=== PATIENT | female | born 1990 | race Hispanic/Latino ===

== ENCOUNTER 2020-04-26 01:24 | Observation (INO) | payer SELFPAY ==
[2020-04-26] MEDS ORDERED: Ondansetron PF 4 MG/2 ML Vial ONE ×3 (01:46→10:34)
[2020-04-26] MEDS ORDERED: Ketorolac Tromethamine 30 MG/ML VIAL ONE ×2 (01:46→10:34)
[2020-04-26 02:21] LABS: Bilirubin Negative (Negative); Blood, Urine Negative (Negative); Clarity Clear (Clear); Glucose, Urine (Dipstick) >=1000 mg/dL (Negative); Ketone, Urine Trace mg/dL (Negative); Leukocyte Negative Leu/uL (Negative); Nitrite Negative (Negative); Protein, Urine (Dipstick) Negative (Neg-Trace); Specific Gravity, Urine 1.016 (1.002-1.036); Urobilinogen Normal mg/dL (Less than 2); pH, Urine 7.5 (5.0-9.0)
[2020-04-26 02:22] LABS: Hemoglobin 12.3 g/dL (12.0-16.0); Mean Corpuscular HGB CONC 35.1 g/dL (32.0-36.0); Mean Corpuscular Hemoglobin 30.7 pg (27.0-31.0); Mean Corpuscular Volume 87.5 fL (78.0-98.0); Mean Platelet Volume 6.9 fL (7.4-10.4); Platelet Count 242 thou/uL (130-400); RBC Distribution Width 13.2 % (11.5-14.5); Red Blood Cell (RBC) Count 4.01 mill/uL (4.20-5.40); White Blood Cell (WBC) Count 7.1 thou/uL (4.8-10.8)
[2020-04-26 02:24] LABS: BHCG - Serum Negative (NEGATIVE); Pregs Control Background? CLEAR/WHITE (CLR/WHITE); Pregs Control Bar Appear? YES (CONTROL BAR)
[2020-04-26 02:38] LABS: Band 4 % (5-11); Lymphocytes 43 % (21-51); MDiff Complete? YES; Monocytes 9 % (0-10); Neutrophil 44 % (42-75); Platelet Morphology Comment Appears Adequate; RBC Morphology Normal
[2020-04-26 02:41] LABS: ALT (SGPT) 63 U/L (8-55); AST (SGOT) 53 U/L (5-34); Albumin 4.2 g/dL (3.5-5.0); Alkaline Phosphatase 78 U/L (40-110); Anion Gap 13 mmol/L (10-20); BUN (Urea Nitrogen) 7 mg/dL (7.0-18.7); Bilirubin, Total 0.3 mg/dL (0.2-1.2); Calc. Creatinine Clearance 0 mL/min (70-130); Calcium 8.8 mg/dL (7.8-10.44); Carbon Dioxide 25 mmol/L (22-29); Chloride 102 mmol/L (98-107); Estimated GFR-MDRD Greater than 90; Globulin 3.3 g/dL (2.4-3.5); Glucose 206 mg/dL (70-105); Lipase 31 U/L (8-78); Potassium 3.3 mmol/L (3.5-5.1); Protein, Total 7.5 g/dL (6.0-8.3); Sodium 137 mmol/L (136-145)
[2020-04-26] MEDS ORDERED: Morphine 4 MG/ML VIAL ONE (03:40)
[2020-04-26] MEDS ORDERED: Piperacillin/Tazobactam 4.5 GM VIAL ONE (03:50)
[2020-04-26] MEDS ORDERED: Morphine 4 MG/ML VIAL SLOW IVP PRN ×2 (04:41→17:01)
[2020-04-26] MEDS ORDERED: Ondansetron ODT 4 MG TAB SL PRN (04:45)
[2020-04-26] MEDS ORDERED: Ondansetron PF 4 MG/2 ML Vial IVP PRN (04:45)
[2020-04-26 05:01] VITALS: BMI 31.4
[2020-04-26] MEDS ORDERED: FLU VACC QS2020-21(6MOS UP)/PF 60 MCG/0.5 ML SYRINGE IM ONE (06:45)
--- NOTE | 2020-04-26 07:49 | ULT ---
PRELIMINARY REPORT/[facility]/EMERGENCY AFTER HOURS PROCEDURE: EXAM: US Abdomen Limited, Right Upper Quadrant. CLINICAL HISTORY: RT sided pain x 3 days, nausea TECHNIQUE: Real-time ultrasound of the right upper quadrant with image documentation. COMPARISON: None provided. FINDINGS: LIVER: Measures 16.5 cm and demonstrates fatty infiltration. GALLBLADDER: No gallstone. No wall thickening. No pericholecystic fluid. COMMON BILE DUCT: No dilation. Measures 2.4 mm PANCREAS: Mostly obscured by overlying bowel gas. RIGHT KIDNEY: Unremarkable. No hydronephrosis. Measures 12.1 cm IMPRESSION: No acute process in the RIGHT upper quadrant ELECTRONICALLY SIGNED BY: Nicolas Pace MD Apr 26, 2020 2:25:38 AM LABORER [employer] FINAL REPORT EMERGENT AFTER HOURS RIGHT UPPER QUADRANT ABDOMINAL ULTRASOUND: FINDINGS/IMPRESSION: I agree with the findings and impression given in the preliminary report per [facility] physici [facility]. Unremarkable exam. POS: JESSICAA
--- NOTE | 2020-04-26 07:51 | CT ---
PRELIMINARY REPORT/[facility]/EMERGENCY AFTER HOURS PROCEDURE: Receipt of this report by the clinical staff was confirmed with Romelia Bach RN by Leno Ta on Apr 26, 2020 03:26:00 EVENT MARKETING REPRESENTATIVE. Addendum electronically signed by Shreya Ta on April 26, 2020 3:26:43 AM EVENT MARKETING REPRESENTATIVE EXAM: CT abdomen/pelvis with contrast CLINICAL HISTORY: ABD PAIN X2 DAYS. NAUSEA, NOT VOMITING. RLQ PAIN. PT DENIES FEVER. COMPARISONS: None provided. TECHNIQUE: CT imaging of the abdomen and pelvis after intravenous administration of 100 mL Isovue-370 iodinated contrast. Multiplanar reconstructions performed. FINDINGS: LOWER CHEST: Normal. LIVER: Diffuse hypoattenuation of the liver compatible with hepatic steatosis. GALLBLADDER/BILIARY: Gallbladder is partially decompressed. No biliary ductal dilatation. SPLEEN: Normal. PANCREAS: Normal. ADRENAL GLANDS: Normal. KIDNEYS/URETERS/URINARY BLADDER: Normal appearance of the kidneys. Ureters are normal in course claudy kan. No urinary stones. Urinary bladder is unremarkable. REPRODUCTIVE: Normal appearance of the uterus. Cystic changes of both ovaries, likely physiologic. STOMACH/BOWEL: Distal esophagus and stomach are normal. Small bowel is normal. Large bowel is normal. APPENDIX: Wall thickening and hyperenhancement of the appendiceal tip with mild surrounding inflammat ory stranding at the appendiceal tip. Appendix measures 9 mm in diameter at the tip No periappendicea l fluid collection/abscess. PERITONEUM/MESENTERY: No intraperitoneal free air. No intraperitoneal free fluid. VASCULAR: Vascular structures of the abdomen and pelvis are normal in course and caliber. LYMPH NODES: Prominent right lower quadrant mesenteric lymph nodes measuring up to 8 mm in short axis , likely reactive. MUSCULOSKELETAL: No acute osseous abnormality. Disc bulge at L5-S1. ABDOMINAL WALL: Small fat-containing umbilical hernia. IMPRESSION: Early acute appendicitis with inflammatory changes at the appendiceal tip. No periappendiceal abscess or evidence of gross perforation. ELECTRONICALLY SIGNED BY: Meir Cummings MD Apr 26, 2020 3:24:17 AM EVENT MARKETING REPRESENTATIVE FINAL REPORT EMERGENT AFTER HOURS CT OF THE ABDOMEN AND PELVIS WITH CONTRAST: FINDINGS/IMPRESSION: I agree with the findings and impression given in the preliminary report per [facility] phys[facility]. 1. The appendix is upper limits of normal in size which may be secondary to early acute appendicitis . 2. There is a hypodensity in the left kidney which does not meet criteria for a simple cyst. A foll owup CT or ultrasound is recommended. POS: EAA
--- NOTE | 2020-04-26 09:27 | HP ---
CHIEF COMPLAINT: Abdominal pain. HISTORY OF PRESENT ILLNESS: Ms. Perales is a 30-year-old woman, who presented to the emergency room last night with a 2-day history of lower abdominal pain, worse on the right than the left. She states that the pain had been steadily growing worse and that yesterday she also developed nausea, so she decided to come to the emergency room. An abdominal ultrasound was unremarkable. Her gallbladder looked normal. CT however showed early appendicitis with thickening and periappendiceal inflammation at the tip. No evidence of perforation. The patient states that the medication she received in the emergency room helped with her pain, although she is still having pain in the right lower quadrant. She cannot identify any other alleviating or exacerbating factors. She denies any ill contacts and has been otherwise well. She has not had any fevers or chills or diarrhea and no respiratory symptoms. PAST MEDICAL HISTORY: None. PAST SURGICAL HISTORY: None. FAMILY HISTORY: Noncontributory. ALLERGIES: NO KNOWN DRUG ALLERGIES. MEDICATIONS: No outpatient medications. Medications in the ER include Zosyn 4.5 g given at 03.50 a.m. REVIEW OF SYSTEMS: Ten-system review of systems is negative except per HPI. She specifically denies cough, sore throat, runny nose, shortness of breath, chest pain, dysuria, headaches, or myalgias. LABORATORY DATA: White count is normal. Electrolytes are unremarkable. AST and ALT are mildly elevated. IMAGING DATA: She has fatty liver. Her gallbladder looks normal. There are no stones, wall thickening, or pericholecystic fluid. CT shows some thickening of the distal appendix as well as some periappendiceal stranding. No other abnormalities are noted. PHYSICAL EXAMINATION: VITAL SIGNS: The patient is afebrile with normal vital signs. GENERAL: A healthy-appearing young woman in no acute distress. She has central obesity. No jaundice or icterus. She is not flushed or toxic in appearance. HEENT: Unremarkable. Pupils are equal. Extraocular movements are symmetric. NECK: Supple without lymphadenopathy or thyroid nodules. HEART: Regular in its rate and rhythm. No murmurs, rubs, or gallops. LUNGS: Clear to auscultation bilaterally. ABDOMEN: Soft and nondistended. She has focal tenderness to palpation in the right lower quadrant with some voluntary guarding, but no rigidity or rebound. No palpable masses or hernias. EXTREMITIES: Warm and well perfused without edema. NEURO: No focal deficits. PSYCHIATRIC: Alert, oriented, and conversing appropriately using [employer] geographic information system surveyor. ASSESSMENT: Acute appendicitis. PLAN: Laparoscopic appendectomy. The patient's diagnosis and recommended treatment were discussed with her, options including antibiotic management were discussed as well. Main disadvantage of antibiotic treatment is possibility of recurrent appendicitis and need for appendectomy at a later date. Disadvantages of laparoscopic appendectomy include risks of appendectomy, which include, but are not limited to, bleeding, infection, risks of anesthesia, damage to nearby structures including bowel, bladder, and blood vessels, need for open surgery, need for other procedures. She understands and accepts the risks of surgery and wishes to proceed with surgical treatment for definitive management of her appendicitis. We are still awaiting her COVID testing, but she is asymptomatic and has no known contacts. All of her questions were answered. ADDENDUM: Covid testing ultimately returned positive. Patient was informed of results and recommendations regarding isolation, close contacts, and return to work reviewed. Job ID: [id number] [facility]
[2020-04-26] MEDS ORDERED: Piperacillin/Tazobactam 4.5 GM in Sodium Chloride 0.9% 100 ML IVPB SCH (10:00)
[2020-04-26 10:07] LABS: SARS-CoV-2 NAA Rapid Test DETECTED (NotDetected)
[2020-04-26] MEDS ORDERED: Dexamethasone 20 MG/5 ML VIAL ONE (10:34)
[2020-04-26] MEDS ORDERED: Glycopyrrolate 0.2 MG/ML 5 ML SYRINGE ONE (10:34)
[2020-04-26] MEDS ORDERED: PHENYLEPHRINE-NS 100 MCG/ML 10 ML SYRINGE ONE (10:34)
[2020-04-26] MEDS ORDERED: PROPOFOL 200 MG/20 ML VIAL ONE (10:34)
[2020-04-26] MEDS ORDERED: Lidocaine 1% PF 5 ML VIAL ONE (10:34)
[2020-04-26] MEDS ORDERED: Succinylcholine 200 MG/10 ml SYRINGE FS ONE (10:34)
[2020-04-26] MEDS ORDERED: Rocuronium Bromide 10 MG/ML (10ML VIAL) ONE (10:34)
[2020-04-26] MEDS ORDERED: Iopamidol-370 76% 500 ML 1 ML ONE (11:39)
[2020-04-26] MEDS ORDERED: Lidocaine 1% w/Epinephrine 1:100K 20 ML VIAL ONE (12:17)
[2020-04-26] MEDS ORDERED: Bupivacaine 0.25% HCL 30 ML VIAL ONE (12:17)
[2020-04-26] MEDS ORDERED: Fentanyl 100 MCG/2 ML VIAL ONE ×2 (12:44→14:49)
[2020-04-26] MEDS ORDERED: SUGAMMADEX SODIUM 200 MG/2 ML VIAL ONE (13:00)
[2020-04-26] MEDS ORDERED: Promethazine HCl 25 MG/ML VIAL SLOW IVP PRN (13:46)
[2020-04-26] MEDS ORDERED: Promethazine HCl 25 MG/ML VIAL IM PRN (13:46)
[2020-04-26] MEDS ORDERED: HYDROmorphone 2 MG/ML VIAL SLOW IVP PRN (13:46)
[2020-04-26] MEDS ORDERED: Meperidine HCl/PF 25 MG/ML VIAL SLOW IVP PRN (13:46)
[2020-04-26] MEDS ORDERED: traMADol HCl 50 MG TAB PO PRN ×2 (17:01)
[2020-04-26] MEDS ORDERED: Morphine 2 MG/ML VIAL SLOW IVP PRN (17:01)
[2020-04-26] MEDS ORDERED: HYDROcodone/Acetaminophen 5/325 mg Tablet PO PRN ×2 (17:01)
[2020-04-26] MEDS ORDERED: Acetaminophen 325 MG TAB PO PRN ×2 (17:01)
--- NOTE | 2020-04-26 17:49 | PDOC.OP ---
Operative Note - Operative Note Operative Note: PROCEDURE: Laparoscopic appendectomy. SURGEON: Boni Cosme M.D. DATE OF PROCEDURE: 04/26/2020 PREOPERATIVE DIAGNOSIS: Appendicitis. POSTOPERATIVE DIAGNOSIS: Appendicitis. HISTORY: 30-year-old woman who presented with signs and symptoms concerning for appendicitis. CT scan showed evidence of acute appendicitis decision was made to proceed with laparoscopic appendectomy. DESCRIPTION OF PROCEDURE: After informed consent was obtained and appropriate antibiotics continued, the patient was taken to the operating room and placed in the supine position and general endotracheal anesthesia was administered. The bladder was decompressed with a Moore catheter and the abdomen was prepped and draped in the standard sterile fashion. Local anesthesia was infused to the skin and subcutaneous tissues superior to the umbilicus. A transverse skin i ncision was made and a Veress needle placed into the abdominal cavity and carbon dioxide gas insufflated without difficulty. Opening pressure was less than 5. Carbon dioxide gas was insufflated to an intra-abdominal pressure 15 and the patient tolerated this well. The Veress needle was withdrawn and a [place] port advanced under direct laparoscopic vision into the abdominal cavity. Two additional ports were placed in the suprapubic and left lateral abdomen under direct laparoscopic vision after local anesthesia was infused at these sites. There were no significant adhesions. The appendix was identified and appeared inflamed but not perforated. The appendix was grasped by the mesoappendix and elevated. The mesoappendix was then sequentially ligated and divided down to the base of the appendix, which was normal in appearance and was clearly seen to be at the confluence of the tenia. Two Endoloops were placed around the base of the appendix and the appendix was divided between these Endoloops, placed into an EndoCatch bag and drawn out through the suprapubic incision. The suprapubic trocar was then replaced and the operative site was easily irrigated to clear. The suprapubic trocar was removed and the fascia closed under direct laparoscopic vision with a 0 Vicryl suture on a GraNee needle with excellent technical result. The left lateral trocar was then removed and hemostasis verified. Carbon dioxide gas was desufflated through the umbilical trocar which was then removed. The skin incisions were irrigated and additional local anesthesia infused at each site. The skin was closed with 4-0 subcuticular Monocryl sutures and Dermabond dressings were placed. The patient was extubated and taken to the recovery room in good condition. Estimated blood loss was mi nimal. There were no complications. SPECIMEN: Appendix.
[2020-04-26 18:50] VITALS: TEMP 97
[2020-04-26 18:54] VITALS: BP 95/64
== END 2020-04-26 18:55 | disposition home or self-care (01) ==
LOC: ERS 01:24 → SJJU 03:32
PROVIDERS: ADMIT Surgery; ATTEND Surgery
PROC: 0DTJ4ZZ Resection of Appendix, Percutaneous Endoscopic Approach (ICD-10-PCS; principal; 2020-04-26)
DX: K35.80 Unspecified acute appendicitis (principal); U07.1 COVID-19; K76.0 Fatty (change of) liver, not elsewhere classified
CPT/HCPCS: 74177; 76705; 80053; 81003; 83690; 84703; 85025; 88304; 96365; 96375; 96376; G0378; J1100; J1885; J2270; J2405; J2543; J2704; J3010; Q9967; S0020; U0002